=== PATIENT | female | born 1960 | race Native Hawaiian/Other Pacific Islander ===

== ENCOUNTER 2022-01-08 08:44 | Outpatient (CLI) | payer BC ==
[~2022-01-08 08:44] MED LIST: DIVA250T PO; HYDR25TA60 PO; LEVETIRACETA500 M1 PO; LEVO0.1224 PO
== END 2022-01-08 19:27 | disposition home or self-care (01) ==
LOC: MAMMO 08:44
PROVIDERS: ATTEND Obstetrics & Gynecology
DX: Z12.31 Encounter for screening mammogram for malignant neoplasm of breast (principal)